=== PATIENT | male | born 1980 | race Caucasian/White ===

== ENCOUNTER → 2024-05-12 06:23 | Day surgery (SDC) | payer BC, SELFPAY | LOC: GI 06:23 | PROVIDERS: ATTENDING PHYSICIAN Internal Medicine Gastroenterology; FAMILY PHYSICIAN Internal Medicine | DX: Z12.11 Encounter for screening for malignant neoplasm of colon (principal); K57.30 Diverticulosis of large intestine without perforation or abscess without bleeding; K64.8 Other hemorrhoids; K62.1 Rectal polyp | CPT/HCPCS: 45385; 88305 ==

== ENCOUNTER → 2024-11-02 12:00 | Outpatient (REF) | payer BC, SELFPAY | LOC: DHSLP 12:00 | PROVIDERS: ATTENDING PHYSICIAN Otolaryngology; FAMILY PHYSICIAN Internal Medicine | DX: G47.33 Obstructive sleep apnea (adult) (pediatric) (principal); R09.02 Hypoxemia | CPT/HCPCS: 95800 ==

== ENCOUNTER 2025-01-08 15:49 | Emergency (ER) | payer BC, SELFPAY ==
[2025-01-08 15:57] VITALS: BP 134/88
--- NOTE | 2025-01-08 18:25 | ED.GENMED ---
History of Present Illness
General
Chief Complaint: Musculo-Skeletal Complaint
Source: patient
Exam Limitations: none
Time Seen by Provider: 01/08/25 18:14
History of Present Illness
History of Present Illness:
Patient stood up suddenly to kick a soccer ball when he felt a pop in his right calf. Able to bear weight. No distal numbness tingling or weakness. Pain is moderate nature.
Past History
Past History
ED Past Surgical History: Orthopedic
Phy Exam
Physical Exam
Physical Exam:
General: Nontoxic appearing in no distress
Skin: Warm and dry, no rash
Neuro: Alert, nontoxic, grossly nonfocal
Psychiatric: Good eye contact and appropriate
Musculoskeletal: No pain with right hip rotation. Right knee is stable. Able to straight leg raise. No obvious calf swelling. No anterior tibial tenderness. Ankle nontender. Foot nontender. Good distal pulses and color. Good capillary
refill. Tenderness to the posterior calf. Achilles is palpated and intact. Positive Jenkins test.
Course
Orders/Labs/Results
Orders:
Orders
01/08/25 18:24
Acetaminophen [Tylenol] 650 mg PO NOW STA
Ibuprofen [Motrin] 600 mg PO NOW STA
01/08/25 18:[address] Non Medication Order As Directed
Physician Order: Ice bag to right calf
Tibia/Fibula, Right 2 View [CR Leg Tibia/fibula Right 2 Vw] Urgent
Comment:
Reason For Exam: Sudden right calf pain
01/08/25 18:45
Samuel Wrap Right-Treatment ONCE
Vital Signs
Initial and Last Documented VS:
Initial Vital Signs
Temp Pulse Resp BP Pulse Ox
99.1 F 96 18 134/88 96
01/08/25 15:57 01/08/25 15:57 01/08/25 15:57 01/08/25 15:57 01/08/25 15:57
Last Documented Vital Signs
Temp Pulse Resp BP Pulse Ox
99.1 F 84 18 148/101 100
01/08/25 15:57 01/08/25 19:12 01/08/25 15:57 01/08/25 19:12 01/08/25 19:12
MDM/Problems Addressed
Differential Diagnosis Includes:
All consistent with a muscular tear to the calf. Clinically does not have an Achilles tear. Will get an x-ray to rule out spiral fracture. Anti-inflammatories pain management weightbearing as tolerated and orthopedic follow-up
*Critical Care Note
Total Time (30-74mins, 75-104mins- exclusive of procedures): Not Applicable
ED Attending Note
-
Portions of this chart may have been created with voice recognition software.� Occasional wrong word or��sound alike� substitutions may have occurred due to the inherent limitations of voice recognition software.
Discharge Plan
Departure
Patient Disposition: Home (Routine Discharge)
Date of Disposition: 01/08/25
Time of Disposition: 18:45
Patient with high blood pressure during this ER visit?: Yes
Discharge Problem:
Right calf muscle tear
Instructions: Lower Extremity Muscle Strain, BLOOD PRESSURE
Referrals:
Olvin Spicer MD [Active] - Follow up in 2-3 days
Activity Restrictions/Additional Instructions:
Elevate rest. Use crutches for support
Tylenol or Motrin for pain or both
Call orthopedics first thing tomorrow for close follow-up
Interventions
Interventions:
*Risk Screen - Suicide Last Done: 01/08/25 15:57
*General Assessment Last Done: 01/08/25 15:57
*Neglect/Abuse Screening Last Done: 01/08/25 15:57
*ED- Fall Risk Assessment Last Done: 01/08/25 19:23
*ED COVID-19 Vaccine History Last Done: 01/08/25 19:21
*Nursing Disposition Last Done: 01/08/25 19:21
ED-Musculoskeletal Assessment Last Done: 01/08/25 19:21
Discharge Date and Time
Discharge Date/Time: 01/08/25 19:24
Print Language: [place]
[2025-01-08] MEDS: MOTRIN 600 MG PO (19:09)
[2025-01-08] MEDS: TYLENOL 650 MG PO (19:09)
[2025-01-08 19:12] VITALS: BP 148/101
== END 2025-01-08 19:24 | disposition home or self-care (01) ==
LOC: EMR 15:49
PROVIDERS: EMERGENCY PHYSICIAN Emergency Medicine; FAMILY PHYSICIAN Internal Medicine
DX: S86.111A Strain of other muscle(s) and tendon(s) of posterior muscle group at lower leg level, right leg, initial encounter (principal); X58.XXXA Exposure to other specified factors, initial encounter; Y93.89 Activity, other specified; R03.0 Elevated blood-pressure reading, without diagnosis of hypertension
CPT/HCPCS: 99283; 73590

== ENCOUNTER → 2025-03-02 08:16 | Outpatient (REF) | payer BC, SELFPAY | LOC: RCS 08:16 | PROVIDERS: ATTENDING PHYSICIAN Internal Medicine Cardiovascular Disease; FAMILY PHYSICIAN Internal Medicine | DX: R06.02 Shortness of breath (principal) | CPT/HCPCS: 93306 ==